=== PATIENT | male | born 1960 | race Caucasian/White ===

== ENCOUNTER → 2017-02-09 | Outpatient (CLI) | payer BC ==
[~2017-02-09] MED LIST: APRI PO; FLEXERIL PO; FLONASE 0.05% N16 G1; FLONASE16 GM; FLORA-Q 2 CAPSU1 CAP PO; FUROSEMIDE40 MG PO; KLOR-CON PO; LEVSIN0.125 M1 PO; LISINOPRIL10 MG PO; LORTAB 7.5-5001 TAB PO; MEDROL DOSEPAK4 MG PO; PRILOSEC20 M1 PO; TRIAMTERENE; TRIAMTERENE-HC1 EACH PO; ZESTRIL5 MG PO; [UNRECOGNIZED DRUG - OTHER] PO
--- NOTE | ~2017-02-09 | US85 ---
[facility] A Service of [facility] & [facility] RADIOLOGY TEXT RESULTS PATIENT: AVANI BAEZ LOCATION: CNIV : 62 UNIT #: [id number] AGE: [address]: Irlanda Montero APRN SEX: M ORDER DR: [id number] [facility] [address] [place], [place] [address] [id number] O MR#: [id number] Acc #: [id number] NAME: AVANI BAEZ : 1960 SEX: M STUDY DATE/TIME: 02/09/2017 16:40 UNIT: CNIV ROOM: STUDY DESCRIPTION: [facility] or [facility] St[facility] Attending Physician: Irlanda Montero A.P.R.N. Referring Physician: Irlanda Montero A.P.R.N. Ordering Physician: Irlanda Montero A.P.R.N. Primary Care Physician: Vijay Hernandez M.D. MEDICAL IMAGING REPORT This report is preliminary unless electronic signature is present EXAM Right lower extremity venous ultrasound HISTORY Right lower extremity swelling for 5 days. TECHNIQUE Venous ultrasound examination of the right lower extremity was performed using grayscale, spectral Doppler and color flow Doppler imaging. FINDINGS The examination is negative. There is no evidence of right lower extremity deep venous thrombus from the groin to the lower calf. Visualized greater saphenous vein is also patent. IMPRESSION Negative examination. No evidence of right lower extremity deep venous thrombosis. Dictated by... Ludin Espinosa M.D. THIS IS AN ELECTRONICALLY VERIFIED REPORT Ludin Espinosa M.D. at 02/10/2017 2:16 PM DFL/marcosr TD: 02/10/2017 06:15 JOB #: [id number] MEDICAL IMAGING REPORT Page 1 of 1 COPY
== END | disposition home or self-care (01) ==
LOC: CNIV 16:12
DX: M79.89 Other specified soft tissue disorders (principal)
CPT/HCPCS: 93971